=== PATIENT | female | born 1945 | race African-American/Black ===

== ENCOUNTER 2017-04-13 16:21 | Inpatient (IN) ==
[2017-04-13] MEDS ORDERED: ASPIRIN 325 MG TABLET ONE (16:48)
[2017-04-13] MEDS ORDERED: methylPREDNISolone SOD SUC 125 MG/2 ML VIAL ONE (16:48)
[2017-04-13] MEDS ORDERED: ENOXAPARIN 80 MG/0.8 ML SYRINGE SUBCUT ONE (16:48)
[2017-04-13] MEDS ORDERED: FAMOTIDINE 20 MG/2 ML VIAL IV ONE (16:49)
[2017-04-13] MEDS ORDERED: LIDOCAINE 1% 20 ML VIAL ONE (16:52)
[2017-04-13] MEDS ORDERED: methylPREDNISolone SOD SUC 125 MG/2 ML VIAL IV STA (16:52)
[2017-04-13] MEDS ORDERED: ENOXAPARIN 80 MG/0.8 ML SYRINGE SUBCUT STA (16:52)
[2017-04-13] MEDS ORDERED: ASPIRIN 325 MG TABLET PO STA (16:52)
[2017-04-13] MEDS ORDERED: FAMOTIDINE 20 MG/2 ML VIAL IV STA (16:52)
[2017-04-13] MEDS ORDERED: HYDROmorphone 2 MG/1 ML VIAL ONE (16:59)
[2017-04-13] MEDS ORDERED: MIDAZOLAM 2 MG/2 ML VIAL ONE (16:59)
[2017-04-13] MEDS ORDERED: VERAPAMIL 5 MG/2 ML VIAL ONE (17:10)
[2017-04-13] MEDS ORDERED: NITROGLYCERIN DRIP 50 MG/250 ML BOTTLE IV ONE (17:10)
[2017-04-13] MEDS ORDERED: EPTIFIBATIDE 20,000 MCG/10 ML VIAL ONE (17:21)
[2017-04-13] MEDS ORDERED: TICAGRELOR 90 MG TABLET ONE (17:25)
[2017-04-13] MEDS ORDERED: MAGNESIUM SULF RIDER 4 GM in PREMIX 1 EACH IV PRN (17:41)
[2017-04-13] MEDS ORDERED: MAGNESIUM SULF RIDER 2 GM in PREMIX 1 EACH IV PRN (17:41)
[2017-04-13] MEDS ORDERED: SODIUM CHLORIDE 0.9% 1,000 ML IV SCH (18:00)
[2017-04-13] MEDS: ROSUVASTATIN 20 MG TABLET PO SCH (22:16)
[2017-04-13] MEDS: TICAGRELOR 90 MG TABLET PO SCH (22:16)
[2017-04-13] MEDS: CARVEDILOL 6.25 MG TABLET PO SCH (22:16)
[2017-04-13] MEDS: busPIRone 10 MG TABLET PO SCH (22:22)
[2017-04-14 04:45] LABS: Basophils % 0.2 % (0.0-0.8); Eosinophils % 0.1 % (0.00-10.9); Hematocrit 40.9 VOL% (35.7-47.0); Hemoglobin 13.9 GM/DL (12.0-16.0); Immature Granulocytes % 0.6 %; Immature Granulocytes Absolute 0.08 #; Lymphocytes # 1.2 10*3/uL (1.4-4.0); Lymphocytes % 9.4 % (21.3-54.2); Mean Corpuscular Hemoglobin 31 PG (27-34); Mean Corpuscular Volume 90.3 FL (87-102); Mean Platelet Volume 11.8 FL (9.6-12.0); Monocytes # 0.2 10*3/uL (0.11-0.8); Monocytes % 1.7 % (1.7-12.7); Platelet Count 255 T/CUMM (130-400); Red Blood Count 4.53 MC/CUMM (3.8-5.5); Red Cell Distribution Width 13.2 % (9.3-17.3); White Blood Count 12.5 T/CUMM (4-12)
[2017-04-14 05:16] LABS: CKMB % 6.2 %; Calcium 9.2 MG/DL (8.5-10.1); Osmolality,Calculated 282.3 MOS/KG (273-304); Potassium 3.6 MMOL/L (3.5-5.1)
[2017-04-14 05:25] LABS: Troponin I Only 1.52 NG/ML (0.00-0.045)
[2017-04-14] MEDS: LEVOTHYROXINE 100 MCG TABLET PO SCH (06:24)
[2017-04-14] MEDS: CARVEDILOL 6.25 MG TABLET PO SCH ×2 (08:30→22:09)
[2017-04-14] MEDS: LOSARTAN 25 MG TABLET PO SCH (08:30)
[2017-04-14] MEDS: TICAGRELOR 90 MG TABLET PO SCH ×2 (08:30→22:10)
[2017-04-14] MEDS: busPIRone 10 MG TABLET PO SCH ×3 (08:30→22:11)
[2017-04-14] MEDS: ASPIRIN EC 81 MG TABLET PO SCH (08:30)
[2017-04-14] MEDS: NICOTINE 21 MG/24 HR PATCH TRANSDERM SCH (11:05)
[2017-04-14] MEDS: DOCUSATE SODIUM 100 MG/10 ML UDCUP PO SCH ×2 (11:05→22:11)
[2017-04-14] MEDS: PANTOPRAZOLE 40 MG TABLET PO SCH (11:06)
[2017-04-14 16:21] LABS: Apearance,Urine CLEAR (Clear); Bilirubin,Urine Negative (Negative); Blood, Urine Negative (Negative); Glucose,Urine (UA) Negative (Negative); Ketones,Urine Negative (Negative); Mucus,Urine Occasional /LPF (Occasional); Nitrite,Urine Negative (Negative); Protein,Urine Negative; RBC,Urine <1 /HPF (0-4); Urine Color Yellow (Yellow); Urine Specific Gravity 1.009 (1.001-1.035); WBC,Urine <1 /HPF (0-6)
[2017-04-14] MEDS ORDERED: guaiFENesin/DM ER 600-30 MG TABLET PO PRN (18:22)
[2017-04-14] MEDS ORDERED: ONDANSETRON 4 MG/2 ML VIAL IV PRN (18:22)
[2017-04-14] MEDS ORDERED: diphenhydrAMINE CAP 25 MG CAPSULE PO PRN (18:22)
[2017-04-14] MEDS ORDERED: ACETAMINOPHEN 325 MG TABLET PO PRN (18:22)
[2017-04-14] MEDS: ROSUVASTATIN 20 MG TABLET PO SCH (22:09)
[2017-04-15 05:35] LABS: Basophils # 0.1 10*3/uL (0.0-0.2); Basophils % 0.3 % (0.0-0.8); Eosinophils # 0.1 10*3/uL (0.0-0.87); Eosinophils % 0.5 % (0.00-10.9); Hematocrit 37.2 VOL% (35.7-47.0); Hemoglobin 12.7 GM/DL (12.0-16.0); Immature Granulocytes % 0.4 %; Immature Granulocytes Absolute 0.06 #; Lymphocytes # 4.7 10*3/uL (1.4-4.0); Lymphocytes % 31.7 % (21.3-54.2); Mean Corpuscular HGB Conc 34.1 GM/DL (32-36); Mean Corpuscular Hemoglobin 31 PG (27-34); Mean Platelet Volume 11.7 FL (9.6-12.0); Monocytes # 1.2 10*3/uL (0.11-0.8); Neutrophils # 8.7 10*3/uL (1.4-7.4); Neutrophils % 59.1 % (38.7-73.9); Platelet Count 241 T/CUMM (130-400); Red Blood Count 4.09 MC/CUMM (3.8-5.5); Red Cell Distribution Width 13.3 % (9.3-17.3); White Blood Count 14.7 T/CUMM (4-12)
[2017-04-15] MEDS: LEVOTHYROXINE 100 MCG TABLET PO SCH (05:42)
[2017-04-15 06:08] LABS: Calcium 9.2 MG/DL (8.5-10.1); Magnesium 2.1 MG/DL (1.8-2.4); Osmolality,Calculated 286.7 MOS/KG (273-304); Potassium 3.7 MMOL/L (3.5-5.1); Risk Ratio 3.02; VLDL CHOLESTEROL 14.8 MG/DL
[2017-04-15 06:22] LABS: Troponin I Only 0.61 NG/ML (0.00-0.045)
[2017-04-15] MEDS: NICOTINE 21 MG/24 HR PATCH TRANSDERM SCH (09:29)
[2017-04-15] MEDS: DOCUSATE SODIUM 100 MG/10 ML UDCUP PO SCH (09:29)
[2017-04-15] MEDS: LOSARTAN 25 MG TABLET PO SCH (09:31)
[2017-04-15] MEDS: CARVEDILOL 6.25 MG TABLET PO SCH (09:32)
[2017-04-15] MEDS: busPIRone 10 MG TABLET PO SCH (09:32)
[2017-04-15] MEDS: ASPIRIN EC 81 MG TABLET PO SCH (09:32)
[2017-04-15] MEDS: PANTOPRAZOLE 40 MG TABLET PO SCH (09:32)
[2017-04-15] MEDS: TICAGRELOR 90 MG TABLET PO SCH (09:32)
[2017-04-15 11:29] VITALS: BP 135/74
== END 2017-04-15 01:10 | disposition home or self-care (01) | DRG 247 ==
LOC: EDUNIT# → EDBD → N.ED 16:21 → N.TELES 17:00 → N.EDINP 17:33 → N.TELES 19:35
PROVIDERS: ADMIT Internal Medicine Cardiovascular Disease; ATTEND Internal Medicine Cardiovascular Disease
PROC: CLCCHCL (ICD-10-PCS; 2017-04-13 17:15)

== ENCOUNTER 2017-05-11 03:21 | Observation (INO) ==
[2017-05-11] MEDS ORDERED: ASPIRIN 325 MG TABLET PO STA (05:05)
[2017-05-11] MEDS ORDERED: NITROGLYCERIN 2% OINT 1 INCH/GM PACK TOP STA (05:05)
[2017-05-11 05:14] LABS: Basophils # 0.1 10*3/uL (0.0-0.2); Basophils % 0.5 % (0.0-0.8); Eosinophils # 0.5 10*3/uL (0.0-0.87); Eosinophils % 4.6 % (0.00-10.9); Hematocrit 37.9 VOL% (35.7-47.0); Hemoglobin 12.6 GM/DL (12.0-16.0); Immature Granulocytes % 0.3 %; Immature Granulocytes Absolute 0.03 #; Lymphocytes # 3.5 10*3/uL (1.4-4.0); Lymphocytes % 31.6 % (21.3-54.2); Mean Corpuscular HGB Conc 33.2 GM/DL (32-36); Mean Corpuscular Hemoglobin 30 PG (27-34); Mean Corpuscular Volume 90.7 FL (87-102); Mean Platelet Volume 11.2 FL (9.6-12.0); Monocytes # 1.1 10*3/uL (0.11-0.8); Monocytes % 10.3 % (1.7-12.7); Neutrophils # 5.9 10*3/uL (1.4-7.4); Neutrophils % 52.7 % (38.7-73.9); Platelet Count 301 T/CUMM (130-400); Red Blood Count 4.18 MC/CUMM (3.8-5.5); Red Cell Distribution Width 13.3 % (9.3-17.3); White Blood Count 11.1 T/CUMM (4-12)
[2017-05-11] MEDS ORDERED: ASPIRIN 325 MG TABLET ONE (05:22)
[2017-05-11] MEDS ORDERED: NITROGLYCERIN 2% OINT 1 INCH/GM PACK TOP ONE (05:22)
[2017-05-11 05:26] LABS: Alanine Aminotransferase 17 U/L (13-56); Albumin 3.3 G/DL (3.4-5.0); Alkaline Phosphatase 73 U/L (45-117); Aspartate Amino Transferase 17 U/L (0-37); Bilirubin,Total < 0.39 MG/DL (0.2-1.0); Blood Urea Nitrogen 12 MG/DL (7-18); Glucose 105 MG/DL (74-106); Potassium 3.7 MMOL/L (3.5-5.1); Sodium 143 MMOL/L (136-145); Total Protein 6.7 G/DL (6.4-8.3)
[2017-05-11] MEDS ORDERED: ONDANSETRON 4 MG/2 ML VIAL IV PRN (09:18)
[2017-05-11] MEDS ORDERED: NITROGLYCERIN SL 0.4 MG TABLET SL PRN (09:18)
[2017-05-11] MEDS ORDERED: MORPHINE 10 MG/1 ML VIAL IV PRN (09:18)
[2017-05-11] MEDS ORDERED: ALUM/MAG/SIMETH/LIDO VISC 1:1 30 ML BOTTLE PO ONE ×2 (09:18→10:32)
[2017-05-11] MEDS ORDERED: ENOXAPARIN 40 MG/0.4 ML SYRINGE ONE (10:31)
[2017-05-11] MEDS ORDERED: DOCUSATE SODIUM 100 MG CAPSULE ONE (10:31)
[2017-05-11] MEDS ORDERED: PANTOPRAZOLE 40 MG TABLET PO ONE (10:31)
[2017-05-11] MEDS: PANTOPRAZOLE 40 MG TABLET PO SCH (10:38)
[2017-05-11] MEDS: DOCUSATE SODIUM 100 MG CAPSULE PO SCH ×2 (10:38→21:26)
[2017-05-11] MEDS: ENOXAPARIN 40 MG/0.4 ML SYRINGE SUBCUT SCH (10:40)
[2017-05-11 11:04] LABS: Risk Ratio 2.46; Thyroid Stimulating Hormone 0.851 uIU/ml (0.358-3.74); VLDL CHOLESTEROL 13.6 MG/DL
[2017-05-11] MEDS: SIMETHICONE CHEW 125 MG TABLET PO PRN (18:36)
[2017-05-11] MEDS: FLUTICASONE 50 MCG NASAL SPRAY 16 GM BOTTLE BOTH NARES SCH (22:52)
[2017-05-12] MEDS: SIMETHICONE CHEW 125 MG TABLET PO PRN ×2 (01:08→10:59)
[2017-05-12] MEDS: PANTOPRAZOLE 40 MG TABLET PO SCH (09:19)
[2017-05-12] MEDS: FLUTICASONE 50 MCG NASAL SPRAY 16 GM BOTTLE BOTH NARES SCH (09:19)
[2017-05-12] MEDS: DOCUSATE SODIUM 100 MG CAPSULE PO SCH (09:19)
[2017-05-12] MEDS: ENOXAPARIN 40 MG/0.4 ML SYRINGE SUBCUT SCH (09:20)
[2017-05-12 11:41] VITALS: BP 129/81
== END 2017-05-12 16:10 | disposition home or self-care (01) ==
LOC: EDBD → EDUNIT# → N.EDINP 03:21 → N.ED 03:21 → INTOOBSV 05:52 → SUATTDRO 05:52 → OBSVTOIN 06:14 → N.3E 16:27
PROVIDERS: ADMIT Hospitalist; ATTEND Pediatrics

== ENCOUNTER 2017-05-28 12:41 | Observation (INO) ==
[2017-05-28 14:30] LABS: Basophils % 0.5 % (0.0-0.8); Eosinophils # 0.3 10*3/uL (0.0-0.87); Eosinophils % 4.2 % (0.00-10.9); Hematocrit 41.5 VOL% (35.7-47.0); Hemoglobin 13.8 GM/DL (12.0-16.0); Immature Granulocytes % 0.4 %; Immature Granulocytes Absolute 0.03 #; Lymphocytes # 2.9 10*3/uL (1.4-4.0); Lymphocytes % 36.2 % (21.3-54.2); Mean Corpuscular HGB Conc 33.3 GM/DL (32-36); Mean Corpuscular Hemoglobin 30 PG (27-34); Mean Corpuscular Volume 91.2 FL (87-102); Mean Platelet Volume 11.1 FL (9.6-12.0); Monocytes # 0.7 10*3/uL (0.11-0.8); Neutrophils % 49.7 % (38.7-73.9); Platelet Count 238 T/CUMM (130-400); Red Blood Count 4.55 MC/CUMM (3.8-5.5); Red Cell Distribution Width 13.5 % (9.3-17.3); White Blood Count 8.1 T/CUMM (4-12)
[2017-05-28 14:32] LABS: Apearance,Urine CLEAR (Clear); Bilirubin,Urine Negative (Negative); Blood, Urine Negative (Negative); Glucose,Urine (UA) Negative (Negative); Ketones,Urine Negative (Negative); Nitrite,Urine Negative (Negative); Protein,Urine Negative; RBC,Urine <1 /HPF (0-4); Urine Color Straw (Yellow); Urine Specific Gravity 1.003 (1.001-1.035); Urine Urobilinogen < 2.0 EU/DL (0.2-1.0); WBC,Urine 1 /HPF (0-6)
[2017-05-28 14:42] LABS: PT Patient Result 10.7 SECS
[2017-05-28 14:53] LABS: Alanine Aminotransferase 15 U/L (13-56); Albumin 3.6 G/DL (3.4-5.0); Alkaline Phosphatase 79 U/L (45-117); Aspartate Amino Transferase 19 U/L (0-37); Blood Urea Nitrogen 11 MG/DL (7-18); Calcium 9.8 MG/DL (8.5-10.1); Glucose 95 MG/DL (74-106); Potassium 3.8 MMOL/L (3.5-5.1); Sodium 143 MMOL/L (136-145); Total Protein 7.2 G/DL (6.4-8.3); Troponin I Only < 0.015 NG/ML (0.00-0.045)
[2017-05-28] MEDS ORDERED: ACETAMINOPHEN 325 MG TABLET PO PRN (19:54)
[2017-05-28] MEDS ORDERED: MAGNESIUM SULF RIDER 4 GM in PREMIX 1 EACH IV PRN (19:54)
[2017-05-28] MEDS ORDERED: MAGNESIUM SULF RIDER 2 GM in PREMIX 1 EACH IV PRN (19:54)
[2017-05-28] MEDS ORDERED: ONDANSETRON 4 MG/2 ML VIAL IV PRN (19:54)
[2017-05-28] MEDS ORDERED: ZALEPLON 5 MG CAPSULE PO PRN (19:54)
[2017-05-28] MEDS ORDERED: MORPHINE 2 MG/1 ML SYRINGE IV PRN (19:54)
[2017-05-28] MEDS ORDERED: guaiFENesin/DM ER 600-30 MG TABLET PO PRN (19:54)
[2017-05-28] MEDS ORDERED: LACTULOSE 20 GM/30 ML UDCUP PO PRN (19:54)
[2017-05-28] MEDS ORDERED: SODIUM CHLORIDE 0.9% 1,000 ML IV SCH (19:54)
[2017-05-28] MEDS ORDERED: ENOXAPARIN 40 MG/0.4 ML SYRINGE SUBCUT SCH (21:00)
[2017-05-28] MEDS ORDERED: ROSUVASTATIN 20 MG TABLET PO SCH (21:00)
[2017-05-28 21:15] LABS: Troponin I Only < 0.015 NG/ML (0.00-0.045)
[2017-05-28] MEDS: FLUTICASONE 50 MCG NASAL SPRAY 16 GM BOTTLE BOTH NARES SCH (23:59)
[2017-05-29 05:51] LABS: Basophils % 0.5 % (0.0-0.8); Eosinophils # 0.4 10*3/uL (0.0-0.87); Eosinophils % 4.4 % (0.00-10.9); Hematocrit 38.1 VOL% (35.7-47.0); Immature Granulocytes % 0.3 %; Immature Granulocytes Absolute 0.02 #; Lymphocytes # 3.6 10*3/uL (1.4-4.0); Lymphocytes % 44.8 % (21.3-54.2); Mean Corpuscular HGB Conc 34.1 GM/DL (32-36); Mean Corpuscular Hemoglobin 31 PG (27-34); Mean Corpuscular Volume 91.6 FL (87-102); Mean Platelet Volume 11.2 FL (9.6-12.0); Monocytes % 11.9 % (1.7-12.7); Neutrophils % 38.1 % (38.7-73.9); Platelet Count 215 T/CUMM (130-400); Red Blood Count 4.16 MC/CUMM (3.8-5.5); Red Cell Distribution Width 13.5 % (9.3-17.3)
[2017-05-29 06:25] LABS: Albumin 3.2 G/DL (3.4-5.0); Bilirubin,Total 0.5 MG/DL (0.2-1.0); Calcium 9.5 MG/DL (8.5-10.1); Eosinophils 8 % (0-10); Giant Platelets Few; Hypochromasia 1+; Lymphocytes 49 % (20-55); Platelet Estimate Adequate; Potassium 3.7 MMOL/L (3.5-5.1); Segmented Neutrophils 35 % (50-85); Total Cells Counted 100; Total Protein 6.3 G/DL (6.4-8.3)
[2017-05-29] MEDS ORDERED: LEVOTHYROXINE 100 MCG TABLET PO SCH (06:30)
[2017-05-29 06:50] LABS: Risk Ratio 2.27; Thyroid Stimulating Hormone 1.41 uIU/ml (0.358-3.74); VLDL CHOLESTEROL 10.2 MG/DL
[2017-05-29 08:56] LABS: Troponin I Only < 0.015 NG/ML (0.00-0.045)
[2017-05-29] MEDS ORDERED: ASPIRIN EC 81 MG TABLET PO SCH (09:00)
[2017-05-29] MEDS ORDERED: LOSARTAN 50 MG TABLET PO SCH (09:00)
[2017-05-29] MEDS ORDERED: DOCUSATE SODIUM 100 MG CAPSULE PO SCH (09:00)
[2017-05-29] MEDS ORDERED: CLOPIDOGREL 75 MG TABLET PO SCH (09:00)
[2017-05-29] MEDS ORDERED: CETIRIZINE 10 MG TABLET PO SCH (09:00)
[2017-05-29] MEDS ORDERED: PANTOPRAZOLE 40 MG TABLET PO SCH ×2 (09:00)
[2017-05-29] MEDS: FLUTICASONE 50 MCG NASAL SPRAY 16 GM BOTTLE BOTH NARES SCH (10:18)
[2017-05-29 12:27] VITALS: BP 122/86
== END 2017-05-29 15:57 | disposition home health service (06) | DRG 310 ==
LOC: EDBD → EDUNIT# → N.ED 12:41 → INTOOBSV 16:03 → N.EDINP 16:03 → N.TELES 18:59
PROVIDERS: ADMIT Internal Medicine Clinical Cardiac Electrophysiology; ATTEND Internal Medicine Clinical Cardiac Electrophysiology

== ENCOUNTER 2017-08-05 11:26 | Observation (INO) ==
[2017-08-05 12:21] LABS: Basophils % 0.2 % (0.0-0.8); Eosinophils % 0.1 % (0.00-10.9); Hematocrit 39.8 VOL% (35.7-47.0); Hemoglobin 12.9 GM/DL (12.0-16.0); Immature Granulocytes % 1.7 %; Immature Granulocytes Absolute 0.28 #; Lymphocytes # 3.2 10*3/uL (1.4-4.0); Lymphocytes % 19.6 % (21.3-54.2); Mean Corpuscular HGB Conc 32.4 GM/DL (32-36); Mean Corpuscular Hemoglobin 30 PG (27-34); Mean Corpuscular Volume 91.3 FL (87-102); Mean Platelet Volume 11.1 FL (9.6-12.0); Monocytes # 1.3 10*3/uL (0.11-0.8); Monocytes % 7.7 % (1.7-12.7); Neutrophils # 11.5 10*3/uL (1.4-7.4); Neutrophils % 70.7 % (38.7-73.9); Platelet Count 273 T/CUMM (130-400); Red Blood Count 4.36 MC/CUMM (3.8-5.5); Red Cell Distribution Width 13.1 % (9.3-17.3); White Blood Count 16.3 T/CUMM (4-12)
[2017-08-05 12:28] LABS: PT Patient Result 10.7 SECS
[2017-08-05 12:36] LABS: Alanine Aminotransferase 23 U/L (13-56); Albumin 3.5 G/DL (3.4-5.0); Alkaline Phosphatase 87 U/L (45-117); Aspartate Amino Transferase 23 U/L (0-37); Blood Urea Nitrogen 9 MG/DL (7-18); Calcium 9.5 MG/DL (8.5-10.1); Glucose 86 MG/DL (74-106); Osmolality,Calculated 280.1 MOS/KG (273-304); Potassium 3.7 MMOL/L (3.5-5.1); Sodium 142 MMOL/L (136-145); Total Protein 7.2 G/DL (6.4-8.3); Troponin I Only < 0.015 NG/ML (0.00-0.045)
[2017-08-05] MEDS ORDERED: MORPHINE 2 MG/1 ML SYRINGE IV PRN (14:44)
[2017-08-05] MEDS ORDERED: DOCUSATE SODIUM 100 MG CAPSULE PO PRN ×2 (14:44→14:48)
[2017-08-05] MEDS ORDERED: BISACODYL 5 MG TABLET PO PRN ×2 (14:44→14:48)
[2017-08-05] MEDS ORDERED: POTASSIUM CHLORIDE RIDER 10 MEQ in PREMIX 1 EACH IV PRN (14:44)
[2017-08-05] MEDS ORDERED: ONDANSETRON 4 MG/2 ML VIAL IV PRN ×2 (14:44→14:48)
[2017-08-05] MEDS ORDERED: MAGNESIUM SULF RIDER 2 GM in PREMIX 1 EACH IV PRN (14:44)
[2017-08-05] MEDS ORDERED: ACETAMINOPHEN 325 MG TABLET PO PRN ×2 (14:44→14:48)
[2017-08-05] MEDS ORDERED: diphenhydrAMINE CAP 25 MG CAPSULE PO PRN ×2 (14:44→14:48)
[2017-08-05] MEDS ORDERED: MAGNESIUM SULF RIDER 4 GM in PREMIX 1 EACH IV PRN (14:44)
[2017-08-05] MEDS ORDERED: ZALEPLON 5 MG CAPSULE PO PRN (14:48)
[2017-08-05] MEDS ORDERED: MORPHINE 10 MG/1 ML VIAL IV PRN (14:48)
[2017-08-05] MEDS ORDERED: traMADol 50 MG TABLET PO PRN (15:31)
[2017-08-05] MEDS ORDERED: CETIRIZINE 10 MG TABLET PO PRN (15:31)
[2017-08-05] MEDS ORDERED: guaiFENesin/DM ER 600-30 MG TABLET PO PRN (15:34)
[2017-08-05] MEDS: PANTOPRAZOLE 40 MG TABLET PO SCH (16:45)
[2017-08-05] MEDS: hydrALAZINE 20 MG/1 ML VIAL IV PRN (16:45)
[2017-08-05 17:01] LABS: Troponin I Only < 0.015 NG/ML (0.00-0.045)
[2017-08-05 17:48] LABS: Apearance,Urine CLEAR (Clear); Bilirubin,Urine Negative (Negative); Blood, Urine Negative (Negative); Glucose,Urine (UA) Negative (Negative); Ketones,Urine Negative (Negative); Mucus,Urine Occasional /LPF (Occasional); Nitrite,Urine Negative (Negative); Protein,Urine Negative; RBC,Urine <1 /HPF (0-4); Urine Color Colorless (Yellow); Urine Specific Gravity 1.003 (1.001-1.035); Urine Urobilinogen < 2.0 EU/DL (0.2-1.0); WBC,Urine <1 /HPF (0-6)
[2017-08-05 19:51] LABS: Troponin I Only < 0.015 NG/ML (0.00-0.045)
[2017-08-05] MEDS ORDERED: CARVEDILOL 6.25 MG TABLET PO SCH ×2 (21:00)
[2017-08-05] MEDS: ROSUVASTATIN 20 MG TABLET PO SCH (21:14)
[2017-08-05] MEDS: CARVEDILOL 25 MG TABLET PO SCH (21:15)
[2017-08-05] MEDS: ZALEPLON 5 MG CAPSULE PO PRN (21:15)
[2017-08-05 21:48] LABS: Troponin I Only 0.016 NG/ML (0.00-0.045)
[2017-08-06 05:07] LABS: Basophils # 0.1 10*3/uL (0.0-0.2); Basophils % 0.4 % (0.0-0.8); Eosinophils # 0.1 10*3/uL (0.0-0.87); Eosinophils % 0.7 % (0.00-10.9); Hematocrit 38.4 VOL% (35.7-47.0); Hemoglobin 12.3 GM/DL (12.0-16.0); Immature Granulocytes % 0.8 %; Immature Granulocytes Absolute 0.12 #; Lymphocytes # 5.3 10*3/uL (1.4-4.0); Lymphocytes % 34.2 % (21.3-54.2); Mean Corpuscular Hemoglobin 30 PG (27-34); Mean Corpuscular Volume 92.3 FL (87-102); Mean Platelet Volume 11.1 FL (9.6-12.0); Monocytes # 1.5 10*3/uL (0.11-0.8); Monocytes % 9.8 % (1.7-12.7); Neutrophils # 8.4 10*3/uL (1.4-7.4); Neutrophils % 54.1 % (38.7-73.9); Platelet Count 262 T/CUMM (130-400); Red Blood Count 4.16 MC/CUMM (3.8-5.5); Red Cell Distribution Width 13.2 % (9.3-17.3); White Blood Count 15.6 T/CUMM (4-12)
[2017-08-06 05:45] LABS: Calcium 8.8 MG/DL (8.5-10.1); Potassium 3.6 MMOL/L (3.5-5.1); Thyroid Stimulating Hormone 5.84 uIU/ml (0.358-3.74)
[2017-08-06] MEDS: LEVOTHYROXINE 100 MCG TABLET PO SCH (07:06)
[2017-08-06] MEDS: CHOLECALCIFEROL 1,000 UNIT TABLET PO SCH (08:32)
[2017-08-06] MEDS: PANTOPRAZOLE 40 MG TABLET PO SCH (08:39)
[2017-08-06] MEDS: ASPIRIN EC 81 MG TABLET PO SCH (08:39)
[2017-08-06] MEDS: CARVEDILOL 25 MG TABLET PO SCH ×2 (08:40→21:18)
[2017-08-06] MEDS: CLOPIDOGREL 75 MG TABLET PO SCH (08:40)
[2017-08-06] MEDS: LOSARTAN 50 MG TABLET PO SCH (08:43)
[2017-08-06] MEDS ORDERED: predniSONE 20 MG TABLET PO SCH (09:00)
[2017-08-06] MEDS ORDERED: PANTOPRAZOLE 40 MG TABLET PO SCH (09:00)
[2017-08-06] MEDS: LEVOFLOXACIN 500 MG TABLET PO SCH (11:15)
[2017-08-06] MEDS: ZALEPLON 5 MG CAPSULE PO PRN (21:18)
[2017-08-06] MEDS: ROSUVASTATIN 20 MG TABLET PO SCH (21:18)
[2017-08-07] MEDS ORDERED: ALUMINUM/MAGNES/SIMETH MAX STR 30 ML UDCUP PO PRN (03:55)
[2017-08-07] MEDS: hydrALAZINE 20 MG/1 ML VIAL IV PRN (04:11)
[2017-08-07 05:51] LABS: Basophils % 0.2 % (0.0-0.8); Eosinophils % 0.2 % (0.00-10.9); Hemoglobin 12.9 GM/DL (12.0-16.0); Immature Granulocytes % 0.8 %; Immature Granulocytes Absolute 0.15 #; Lymphocytes # 5.8 10*3/uL (1.4-4.0); Lymphocytes % 31.2 % (21.3-54.2); Mean Corpuscular HGB Conc 33.1 GM/DL (32-36); Mean Corpuscular Hemoglobin 30 PG (27-34); Mean Corpuscular Volume 91.3 FL (87-102); Mean Platelet Volume 10.8 FL (9.6-12.0); Monocytes # 1.5 10*3/uL (0.11-0.8); Neutrophils % 59.6 % (38.7-73.9); Platelet Count 268 T/CUMM (130-400); Red Blood Count 4.27 MC/CUMM (3.8-5.5); Red Cell Distribution Width 13.4 % (9.3-17.3); White Blood Count 18.5 T/CUMM (4-12)
[2017-08-07] MEDS: LEVOTHYROXINE 100 MCG TABLET PO SCH (06:08)
[2017-08-07 06:17] LABS: Calcium 9.9 MG/DL (8.5-10.1); Osmolality,Calculated 282.1 MOS/KG (273-304); Potassium 3.9 MMOL/L (3.5-5.1)
[2017-08-07] MEDS: PANTOPRAZOLE 40 MG TABLET PO SCH ×2 (08:29→20:31)
[2017-08-07] MEDS: CARVEDILOL 25 MG TABLET PO SCH ×2 (08:29→20:31)
[2017-08-07] MEDS: ASPIRIN EC 81 MG TABLET PO SCH (08:29)
[2017-08-07] MEDS: LEVOFLOXACIN 500 MG TABLET PO SCH (08:29)
[2017-08-07] MEDS: CHOLECALCIFEROL 1,000 UNIT TABLET PO SCH (08:30)
[2017-08-07] MEDS: LOSARTAN 50 MG TABLET PO SCH (08:30)
[2017-08-07] MEDS: CLOPIDOGREL 75 MG TABLET PO SCH (08:30)
[2017-08-07 10:36] LABS: Apearance,Urine CLEAR (Clear); Bilirubin,Urine Negative (Negative); Blood, Urine Negative (Negative); Glucose,Urine (UA) Negative (Negative); Ketones,Urine Negative (Negative); Nitrite,Urine Negative (Negative); Protein,Urine Negative; Squamous Epithelial Cell,Urine Occasional /HPF (0-10); Urine Color Colorless (Yellow); Urine Specific Gravity 1.003 (1.001-1.035); Urine Urobilinogen < 2.0 EU/DL (0.2-1.0); WBC,Urine <1 /HPF (0-6)
[2017-08-07] MEDS ORDERED: BISACODYL 10 MG SUPP RECTAL ONE (12:29)
[2017-08-07] MEDS ORDERED: LACTULOSE 20 GM/30 ML UDCUP PO PRN (12:45)
[2017-08-07] MEDS ORDERED: DOCUSATE SODIUM 100 MG CAPSULE PO SCH (13:00)
[2017-08-07] MEDS: DOCUSATE SODIUM 100 MG CAPSULE PO SCH ×2 (15:28→20:31)
[2017-08-07] MEDS: POLYETHYLENE GLYCOL POWDER 17 GM PACK PO SCH (15:28)
[2017-08-07] MEDS: SUCRALFATE 1 GM/10 ML UDCUP PO SCH ×2 (16:42→20:30)
[2017-08-07] MEDS: ROSUVASTATIN 20 MG TABLET PO SCH (20:30)
[2017-08-07] MEDS: ZALEPLON 5 MG CAPSULE PO PRN (20:30)
[2017-08-08] MEDS: LEVOTHYROXINE 100 MCG TABLET PO SCH (06:33)
[2017-08-08] MEDS: SUCRALFATE 1 GM/10 ML UDCUP PO SCH ×3 (08:47→15:29)
[2017-08-08] MEDS: POLYETHYLENE GLYCOL POWDER 17 GM PACK PO SCH (08:49)
[2017-08-08] MEDS: LOSARTAN 50 MG TABLET PO SCH (08:50)
[2017-08-08] MEDS: CLOPIDOGREL 75 MG TABLET PO SCH (08:50)
[2017-08-08] MEDS: CHOLECALCIFEROL 1,000 UNIT TABLET PO SCH (08:50)
[2017-08-08] MEDS: CARVEDILOL 25 MG TABLET PO SCH (08:51)
[2017-08-08] MEDS: ASPIRIN EC 81 MG TABLET PO SCH (08:51)
[2017-08-08] MEDS: DOCUSATE SODIUM 100 MG CAPSULE PO SCH (08:51)
[2017-08-08] MEDS: PANTOPRAZOLE 40 MG TABLET PO SCH (08:51)
[2017-08-08] MEDS: LEVOFLOXACIN 500 MG TABLET PO SCH (08:51)
[2017-08-08 11:51] LABS: Basophils # 0.1 10*3/uL (0.0-0.2); Basophils % 0.4 % (0.0-0.8); Eosinophils # 0.1 10*3/uL (0.0-0.87); Eosinophils % 0.6 % (0.00-10.9); Hematocrit 44.1 VOL% (35.7-47.0); Hemoglobin 14.2 GM/DL (12.0-16.0); Immature Granulocytes % 0.7 %; Immature Granulocytes Absolute 0.09 #; Lymphocytes # 3.7 10*3/uL (1.4-4.0); Lymphocytes % 28.9 % (21.3-54.2); Mean Corpuscular HGB Conc 32.2 GM/DL (32-36); Mean Corpuscular Hemoglobin 30 PG (27-34); Mean Corpuscular Volume 92.3 FL (87-102); Mean Platelet Volume 10.6 FL (9.6-12.0); Monocytes # 1.4 10*3/uL (0.11-0.8); Neutrophils # 7.5 10*3/uL (1.4-7.4); Neutrophils % 58.4 % (38.7-73.9); Platelet Count 271 T/CUMM (130-400); Red Blood Count 4.78 MC/CUMM (3.8-5.5); Red Cell Distribution Width 13.5 % (9.3-17.3); White Blood Count 12.8 T/CUMM (4-12)
[2017-08-08 14:58] VITALS: BP 111/73
[2017-08-08] MEDS ORDERED: CARVEDILOL 6.25 MG TABLET PO SCH (21:00)
== END 2017-08-08 15:30 | disposition home or self-care (01) ==
LOC: N.EDINP 11:26 → N.TELEN 11:26 → N.ED 11:26 → N.TELEN 16:18
PROVIDERS: ADMIT Internal Medicine Clinical Cardiac Electrophysiology; ATTEND Internal Medicine Clinical Cardiac Electrophysiology